=== PATIENT | female | born 1995 | race Caucasian/White ===

== ENCOUNTER 2017-12-28 10:15 | Emergency (ER) | payer OTHER ==
[~2017-12-28] VITALS: Ht 160 cm; Wt 51.3 kg
[2017-12-28 10:21] VITALS: BP 126/93; Ht 160 cm; Wt 51.3 kg
== END 2017-12-28 11:15 | disposition home or self-care (01) ==
LOC: ED 10:15
DX: J06.9 Acute upper respiratory infection, unspecified (principal)